=== PATIENT | female | born 1960 | race Asian ===

== ENCOUNTER 2016-08-17 08:06 | Inpatient (IN) | payer BC ==
[~2016-08-17] VITALS: Ht 154.9 cm; Wt 50.8 kg
[2016-08-17] MEDS ORDERED: OPTIRAY 350 100 ML VIAL HMH IV ONE (08:07)
[2016-08-17] MEDS ORDERED: ACETAMINOPHEN 325 MG TAB PO PRN (13:15)
[2016-08-17] MEDS ORDERED: SALINE FLUSH 10 ML FLUSH SCH (13:15)
[2016-08-17] MEDS ORDERED: SALINE FLUSH 10 ML FLUSH PRN (13:15)
[2016-08-17] MEDS ORDERED: MAGNEVIST 10ML IV ONE (13:46)
[2016-08-17] MEDS ORDERED: ATENOLOL 25 MG TAB PO SCH (14:23)
[2016-08-17 14:54] VITALS: BP_SYST 116; RESP 16; TEMP 97.9
[2016-08-17 14:56] VITALS: Ht 154.9 cm; Wt 50.8 kg
[2016-08-17] MEDS ORDERED: CALC CARB 500 MG CHEWTAB PO SCH (16:00)
[2016-08-17 18:50] VITALS: BP_SYST 116; RESP 16; TEMP 97.9
[2016-08-17] MEDS ORDERED: Atorvastatin 10 MG TAB PO SCH (21:00)
[2016-08-18] MEDS ORDERED: SODIUM CHLORIDE 0.9% FLUSH BAG 500 ML IV SCH (06:00)
== END 2016-08-17 19:00 | disposition home or self-care (01) | DRG 69 ==
LOC: ENRESERVTM → ENRESERVDT → ER 08:06 → EMR 13:15 → ENPENDDIS 13:15 → PCU 14:20
PROVIDERS: ADMIT Internal Medicine; ATTEND Internal Medicine
DX: G45.9 Transient cerebral ischemic attack, unspecified (principal); I10 Essential (primary) hypertension
CPT/HCPCS: 36415; 70450; 70496; 70498; 70553; 71010; 80053; 81003; 82553; 84484; 85025; 85384; 85610; 85730; 93005